=== PATIENT | female | born 1985 | race Caucasian/White ===

== ENCOUNTER 2018-02-07 04:06 | Emergency (ER) | payer BC ==
[~2018-02-07] VITALS: Ht 165.1 cm; Wt 108.9 kg
[~2018-02-07 04:06] MED LIST: NAPROXEN250 MG PO; TYLENOL WITH C1 EACH PO
[2018-02-07] MEDS ORDERED: MORPHINE SULFATE 2 MG/ML SYR IV STA (04:23)
[2018-02-07] MEDS ORDERED: ONDANSETRON HCL INJ 2 MG/ML VIAL IV STA (04:23)
[2018-02-07] MEDS ORDERED: SODIUM CHLORIDE 0.9% 1000ML 1,000 ML IV ONE (04:30)
[2018-02-07 04:34] LABS: BASOPHILS # (AUTO) 0.1 (0.0-0.1); BASOPHILS % 0.5 % (0.0-1.0); EOSINOPHILS # (AUTO) 0.7 (0.0-0.4); EOSINOPHILS % 3.1 % (0.0-6.0); HEMATOCRIT 37.8 % (34.2-44.1); HEMOGLOBIN 12.9 g/dL (12.0-16.0); LYMPHOCYTES # (AUTO) 4.2 (1.0-3.2); LYMPHOCYTES % 19.2 % (18.0-39.1); MEAN CORPUSCULAR HEMOGLOBIN 32.4 pg (28-32); MEAN CORPUSCULAR HGB CONC 34.1 g/dL (31-35); MONOCYTES # (AUTO) 1.1 (0.2-0.8); MONOCYTES % 5.2 % (4.4-11.3); NEUTROPHILS # (AUTO) 15.6 (2.1-6.9); NEUTROPHILS % 71.3 % (38.7-80.0); PLATELET COUNT 317 x10e3/uL (140-360); RED BLOOD COUNT 3.98 x10e6/uL (3.6-5.1); RED CELL DISTRIBUTION WIDTH 12.7 % (11.7-14.4)
[2018-02-07] MEDS ORDERED: DIATRIZOATE MEGL/DIATRIZOA SOD 30 ML BTL PO ONE (04:35)
[2018-02-07 04:53] LABS: BILIRUBIN,URINE NEGATIVE (NEGATIVE); CLARITY,URINE CLEAR (CLEAR); COLOR,URINE YELLOW (YELLOW); KETONES,URINE NEGATIVE (NEGATIVE); LEUKOCYTE ESTERASE ,URINE NEGATIVE (NEGATIVE); NITRITE,URINE NEGATIVE (NEGATIVE); PROTEIN,URINE DIPSTICK NEGATIVE (NEGATIVE); URINE UROBILINOGEN 0.2 mg/dL (0.2 - 1); WBC,URINE (MAN) 0-5 /HPF (0-5)
[2018-02-07 04:54] LABS: EPITHELIAL CELLS,URINE FEW /LPF; PREGNANCY TEST, URINE NEGATIVE (NEGATIVE); RBC,URINE 0-5 /HPF (0-5)
[2018-02-07 04:56] LABS: ALANINE AMINOTRANSFERASE 30 IU/L (0-55); ALBUMIN 3.6 g/dL (3.5-5.0); ALKALINE PHOSPHATASE 89 IU/L (40-150); AMYLASE 35 U/L (25-125); ANION GAP 11.8 mmol/L (8-16); BLOOD UREA NITROGEN 9 mg/dL (7-26); BUN/CREATININE RATIO 13 (6-25); CALCIUM 9.3 mg/dL (8.4-10.2); CARBON DIOXIDE 29 mmol/L (22-29); CHLORIDE 104 mmol/L (98-107); CREATINE KINASE 117 IU/L (29-168); CREATININE, SERUM 0.71 mg/dL (0.57-1.11); EST GLOMERULAR FILTRATION RATE > 60 ML/MIN (60-); GLUCOSE 111 mg/dL (74-118); LIPASE 33 U/L (8-78); POTASSIUM 3.8 mmol/L (3.5-5.1); SODIUM 141 mmol/L (136-145)
[2018-02-07] MEDS ORDERED: IOPAMIDOL 370 MG/ML 200 ML INFUS..BTL INJ ONE (05:14)
[2018-02-07] MEDS ORDERED: SODIUM CHLORIDE 0.9% 50ML 50 ML ONE (05:14)
[2018-02-07] MEDS ORDERED: PIPER-TAZ 3.375 GM 50 ML IV STA (05:17)
[2018-02-07] MEDS ORDERED: NO HOME MEDS (05:24)
--- NOTE | 2018-02-07 05:54 | Diagnostic Imaging Report ---
EXAM: CT Abdomen and Pelvis WITH contrast INDICATION: Right lower quadrant abdominal pain. Nausea for 8 hours. COMPARISON: CT 06/11/2015 TECHNIQUE: Abdomen and pelvis were scanned utilizing a multidetector helical scanner from the lung base to the pubic symphysis after administration of IV contrast. Coronal and sagittal reformations were obtained. Routine protocol was performed. Scan was performed when during portal venous phase. IV CONTRAST: 100 mL of Isovue-370 ORAL CONTRAST: Gastroview COMPLICATIONS: None RADIATION DOSE: Total DLP: 916.11 mGy*cm Estimated effective dose: (DLP x 0.015 x size factor) mSv CTDIvol has been reviewed. It is below the limits set by the Radiation Protocol Committee (RPC). Dose modulation, iterative reconstruction, and/or weight based adjustment of the mA/kV was utilized to reduce the radiation dose to as low as reasonably achievable. FINDINGS: LINES and TUBES: None. LOWER THORAX: Unremarkable HEPATOBILIARY: No focal hepatic lesions. No biliary ductal dilation. GALLBLADDER: No radio-opaque stones or sludge. No wall thickening. SPLEEN: No splenomegaly. 2.2 cm cyst. PANCREAS: No focal masses or ductal dilatation. ADRENALS: No adrenal nodules KIDNEYS/URETERS: Kidneys enhance symmetrically. No hydronephrosis. No cystic or solid mass lesions. No stones. GI TRACT: No abnormal distention, wall thickening, or evidence of bowel obstruction. Appendix is normal. PELVIC ORGANS/BLADDER: Left ovarian 2.8 cm cyst. LYMPH NODES: No lymphadenopathy. VESSELS: Unremarkable. PERITONEUM / RETROPERITONEUM: No free air or fluid. BONES: Unremarkable. SOFT TISSUES: Unremarkable. IMPRESSION: No acute abnormalities in the abdomen or pelvis. No evidence of appendicitis. Signed by: DR. Ashkan Samuels MD on 02/07/2018 5:51 AM
[2018-02-07] MEDS ORDERED: KETOROLAC TROMETHAMINE 30 MG/ML VIAL IV STA (06:31)
[2018-02-07] MEDS ORDERED: HYDROCODONE/APAP 5MG-325MG TAB PO ONE (08:45)
--- NOTE | 2018-02-07 09:02 | Diagnostic Imaging Report ---
EXAM: Transabdominal and Transvaginal Pelvic Ultrasound INDICATION: ^eval for ovarian pathology, tubo ovarian abscess ^[id number] ^[id number] ^Y COMPARISON: CT abdomen and pelvis 02/07/2018 TECHNIQUE: Grayscale transverse and sagittal transabdominal and transvaginal images were obtained of the pelvis. Transvaginal imaging was medically necessary to better evaluate the endometrium. CLINICAL HISTORY: 32 year old G0; last menstrual period: 12/01/2017. FINDINGS: Uterus: Orientation: Anteverted Size: 5.5 x 3.2 x 4.1 cm, Normal Mass: None Cervix: Nabothian cysts. Endometrium: Thickness: 1.1 cm, Normal. Appearance: Homogeneous hyperechoic echotexture without focal thickening. Right ovary: Size: 2.8 x 2.9 x 2.6 cm Mass/Cyst: None Left ovary: Size: 3.1 x 3.4 x 2.4 cm Mass/Cyst: None Adnexa: Normal Cul-de-sac: No free fluid IMPRESSION: Unremarkable pelvic ultrasound exam. Signed by: Dr. Saul Horn M.D. on 02/07/2018 8:59 AM
== END 2018-02-07 09:49 | disposition home or self-care (01) ==
LOC: ER 04:06
DX: R10.31 Right lower quadrant pain (principal); R10.11 Right upper quadrant pain; R11.0 Nausea; D72.829 Elevated white blood cell count, unspecified
CPT/HCPCS: 36415; 74177; 76830; 80053; 81001; 81025; 82150; 82550; 82553; 83690; 84484; 85025; 99284; J1885; J2270; J2405; J2543; J7030; Q9663; Q9967

== ENCOUNTER 2019-02-22 14:47 | Emergency (ER) | payer BC ==
[~2019-02-22] VITALS: Ht 165.1 cm; Wt 108.9 kg
[~2019-02-22 14:47] MED LIST changes: +NO HOME MEDS
--- OUTSIDE RECORDS SUMMARY | 2019-02-22 14:50 | XMS REPORT ---
[facility] Address Unknown Phone Unavailable Care Team Providers Care Film Librarian Name Role Phone EMILY Emily IVAN Unavailable Unavailable Payers Payer Name Policy Type Policy Number Effective Date Expiration Date Problems This patient has no known problems. Allergies, Adverse Reactions, Alerts Allergy Name Allergy Type Status Severity Reaction(s) Onset Date Inactive Date Treating Clinician Comments naproxen DA Active U 2011-03-26 00:00:00 Medications This patient has no known medications. Results Test Description Test Time Test Comments Text Results Atomic Results Result Comments URINALYSIS COMPLETE 2018-08-20 00:49:00 UA COLOR (test code=COLU) YELLOW YELLOW UA APPEARANCE (test code=APPU) HAZY CLEAR UA GLUCOSE DIPSTICK (test code=DGLUU) norm mg/dL NEGATIVE UA BILIRUBIN DIPSTICK (test code=BILU) NEGATIVE mg/dL NEGATIVE UA KETONE DIPSTICK (test code=KETU) 5 (Trace) mg/dL NEGATIVE UA SPECIFIC GRAVITY (test code=SGU) 1.025 1.001-1.035 UA BLOOD DIPSTICK (test code=MADDIE) 150 (3+) Marko/uL NEGATIVE UA PH DIPSTICK (test code=ROGER) 5.0 5.0-8.0 UA PROTEIN DIPSTICK (test code=PROU) 15 (TRACE) mg/dL Neg-15 UA UROBILINIOGEN DIPSTICK (test code=URO) norm mg/dL 0.0-0.2 UA NITRITE DIPSTICK (test code=BRENDEN) NEGATIVE NEGATIVE UA LEUKOCYTE ESTERASE DIPSTICK (test code=LEUU) 25 Shaina/uL (Trace) uL NEGATIVE UA WBC (test code=WBCU) 0-5 per HPF 0-5 UA RBC (test code=RBCU) 0-2 per HPF 0-5 UA EPITHELIAL CELLS (test code=EPIU) Rare (0-1/hpf) per HPF Few UA BACTERIA (test code=BACU) TRACE per HPF NONE UA MUCUS (test code=MUCU) MANY per LPF NONE-FEW Urine Source? Clean CatchDRUGS OF ABUSE SCREEN [id number] 00:49:00* Test Item Value Reference Range Comments URN COCAINE (test code=COCAURN) NEGATIVE NEGATIVE URN CANNABINOIDS (test code=CANNABURN) NEGATIVE NEGATIVE URN AMPHETAMINE (test code=AMPHETURN) NEGATIVE NEGATIVE URN BARBITURATE (test code=BARBITURN) NEGATIVE NEGATIVE URN BENZODIAZEPINE (test code=BENZOURN) POSITIVE NEGATIVE URN OPIATES (test code=OPIATURN) NEGATIVE NEGATIVE URN PHENCYCLIDINE (PCP) (test code=PHENCURN) NEGATIVE NEGATIVE Urine Source? Clean CatchURINALYSIS [id number] 00:48:00* Test Item Value Reference Range Comments UA COLOR (test code=COLU) YELLOW YELLOW UA APPEARANCE (test code=APPU) HAZY CLEAR UA GLUCOSE DIPSTICK (test code=DGLUU) norm mg/dL NEGATIVE UA BILIRUBIN DIPSTICK (test code=BILU) NEGATIVE mg/dL NEGATIVE UA KETONE DIPSTICK (test code=KETU) 5 (Trace) mg/dL NEGATIVE UA SPECIFIC GRAVITY (test code=SGU) 1.025 1.001-1.035 UA BLOOD DIPSTICK (test code=MADDIE) 150 (3+) Marko/uL NEGATIVE UA PH DIPSTICK (test code=ROGER) 5.0 5.0-8.0 UA PROTEIN DIPSTICK (test code=PROU) 15 (TRACE) mg/dL Neg-15 UA UROBILINIOGEN DIPSTICK (test code=URO) norm mg/dL 0.0-0.2 UA NITRITE DIPSTICK (test code=BRENDEN) NEGATIVE NEGATIVE UA LEUKOCYTE ESTERASE DIPSTICK (test code=LEUU) 25 Shaina/uL (Trace) uL NEGATIVE UA WBC (test code=WBCU) 0-5 per HPF 0-5 UA RBC (test code=RBCU) 0-2 per HPF 0-5 UA EPITHELIAL CELLS (test code=EPIU) Rare (0-1/hpf) per HPF Few UA BACTERIA (test code=BACU) TRACE per HPF NONE UA MUCUS (test code=MUCU) MANY per LPF NONE-FEW Urine Source? Clean CatchDRUGS OF ABUSE SCREEN [id number] 00:48:00* Test Item Value Reference Range Comments URN COCAINE (test code=COCAURN) NEGATIVE URN CANNABINOIDS (test code=CANNABURN) NEGATIVE URN AMPHETAMINE (test code=AMPHETURN) NEGATIVE URN BARBITURATE (test code=BARBITURN) NEGATIVE URN BENZODIAZEPINE (test code=BENZOURN) NEGATIVE URN OPIATES (test code=OPIATURN) NEGATIVE URN PHENCYCLIDINE (PCP) (test code=PHENCURN) NEGATIVE Urine Source? Clean CatchURINALYSIS [id number] 00:45:00* Test Item Value Reference Range Comments UA COLOR (test code=COLU) YELLOW YELLOW UA APPEARANCE (test code=APPU) HAZY CLEAR UA GLUCOSE DIPSTICK (test code=DGLUU) norm mg/dL NEGATIVE UA BILIRUBIN DIPSTICK (test code=BILU) NEGATIVE mg/dL NEGATIVE UA KETONE DIPSTICK (test code=KETU) 5 (Trace) mg/dL NEGATIVE UA SPECIFIC GRAVITY (test code=SGU) 1.025 1.001-1.035 UA BLOOD DIPSTICK (test code=MADDIE) 150 (3+) Marko/uL NEGATIVE UA PH DIPSTICK (test code=ROGER) 5.0 5.0-8.0 UA PROTEIN DIPSTICK (test code=PROU) 15 (TRACE) mg/dL Neg-15 UA UROBILINIOGEN DIPSTICK (test code=URO) norm mg/dL 0.0-0.2 UA NITRITE DIPSTICK (test code=BRENDEN) NEGATIVE NEGATIVE UA LEUKOCYTE ESTERASE DIPSTICK (test code=LEUU) 25 Shaina/uL (Trace) uL NEGATIVE UA WBC (test code=WBCU) per HPF 0-5 UA RBC (test code=RBCU) per HPF 0-5 UA EPITHELIAL CELLS (test code=EPIU) per HPF Few UA BACTERIA (test code=BACU) per HPF NONE Urine Source? Clean CatchDRUGS OF ABUSE SCREEN [id number] 00:45:00* Test Item Value Reference Range Comments URN COCAINE (test code=COCAURN) NEGATIVE URN CANNABINOIDS (test code=CANNABURN) NEGATIVE URN AMPHETAMINE (test code=AMPHETURN) NEGATIVE URN BARBITURATE (test code=BARBITURN) NEGATIVE URN BENZODIAZEPINE (test code=BENZOURN) NEGATIVE URN OPIATES (test code=OPIATURN) NEGATIVE URN PHENCYCLIDINE (PCP) (test code=PHENCURN) NEGATIVE Urine Source? Clean CatchBASIC METABOLIC [id number] 00:27:00* Test Item Value Reference Range Comments SODIUM (test code=NA) 141 mmol/L 136-145 POTASSIUM (test code=K) 3.4 mmol/L 3.5-5.1 CHLORIDE (test code=CL) 103 mmol/L 101-109 CARBON DIOXIDE (test code=CO2) 29.4 mmol/L 21-32 ANION GAP (test code=GAP) 12 mmol/L 10-20 GLUCOSE (test code=GLU) 98 mg/dL 74-106 BLOOD UREA NITROGEN (test code=BUN) 8 mg/dL 3-21 GLOMERULAR FILTRATION RATE (test code=GFR) > 60 mL/min >=60 Estimated GFR by using Modified MDRD formula.Chronic kidney disease is defined as either kidney damageor GFR <60 mL/min/1.73 m2 for >3 months. CREATININE (test code=CREAT) 0.68 mg/dL 0.55-1.3 BUN/CREATININE RATIO (test code=BUN/CREA) 11.8 10-20 CALCIUM (test code=CA) 8.6 mg/dL 8.4-10.2 HEPATIC FUNCTION [id number] 00:27:00* Test Item Value Reference Range Comments TOTAL PROTEIN (test code=PROT) 7.2 g/dL 6.5-8.4 ALBUMIN (test code=ALB) 3.5 g/dL 3.4-4.8 GLOBULIN (test code=GLOB) 3.7 G/DL 1-10 ALBUMIN/GLOBULIN RATIO (test code=A/G) 0.95 RATIO 0.75-1.50 BILIRUBIN TOTAL (test code=BILT) 0.20 mg/dL 0.0-1.0 BILIRUBIN DIRECT (test code=BILD) 0.10 mg/dL 0.0-0.30 SGOT/AST (test code=AST) 18 U/L 6-32 SGPT/ALT (test code=ALT) 33 U/L 12-78 Note: Change in REFERENCE RANGE due to new reagent method. ALKALINE PHOSPHATASE TOTAL (test code=ALKP) 102 U/L 38-126 [id number] 00:27:00* Test Item Value Reference Range Comments LIPASE (test code=LIP) 90 U/L 128-270 [id number] 00:27:00* Test Item Value Reference Range Comments MAGNESIUM (test code=MAG) 2.0 mg/dL 1.6-2.3 HCG SERUM [id number] 00:27:00* Test Item Value Reference Range Comments HCG SERUM QUAL (test code=HCGQL) NEGATIVE NEGATIVE This HCGQL test is NOT applicable for MALE patients.Check with nurse about probable order error.If Tumor Marker Test needed, nurse should order test "HCGTU"(Test #550.14646) [id number] 00:27:00* Test Item Value Reference Range Comments TROPONIN-I (test code=TROPI) <0.015 ng/mL 0.00-0.056 B-TYPE NATRIURETIC [id number] 00:26:00* Test Item Value Reference Range Comments B-TYPE NATRIURETIC PEPTIDE (test code=BNP) < 5.0 pg/mL 0-100 BASIC METABOLIC [id number] 00:21:00* Test Item Value Reference Range Comments SODIUM (test code=NA) 141 mmol/L 136-145 POTASSIUM (test code=K) 3.4 mmol/L 3.5-5.1 CHLORIDE (test code=CL) 103 mmol/L 101-109 CARBON DIOXIDE (test code=CO2) 29.4 mmol/L 21-32 ANION GAP (test code=GAP) 12 mmol/L 10-20 GLUCOSE (test code=GLU) 98 mg/dL 74-106 BLOOD UREA NITROGEN (test code=BUN) 8 mg/dL 3-21 GLOMERULAR FILTRATION RATE (test code=GFR) > 60 mL/min >=60 Estimated GFR by using Modified MDRD formula.Chronic kidney disease is defined as either kidney damageor GFR <60 mL/min/1.73 m2 for >3 months. CREATININE (test code=CREAT) 0.68 mg/dL 0.55-1.3 BUN/CREATININE RATIO (test code=BUN/CREA) 11.8 10-20 CALCIUM (test code=CA) 8.6 mg/dL 8.4-10.2 HEPATIC FUNCTION [id number] 00:21:00* Test Item Value Reference Range Comments TOTAL PROTEIN (test code=PROT) gram/dL 6.4-8.2 ALBUMIN (test code=ALB) g/dL 3.4-5.0 GLOBULIN (test code=GLOB) g/dL 2.7-4.2 ALBUMIN/GLOBULIN RATIO (test code=A/G) 0.75-1.50 BILIRUBIN TOTAL (test code=BILT) mg/dL 0.2-1.2 BILIRUBIN DIRECT (test code=BILD) mg/dL 0.0-0.20 SGOT/AST (test code=AST) IUnit/L 15-37 SGPT/ALT (test code=ALT) U/L 10-69 ALKALINE PHOSPHATASE TOTAL (test code=ALKP) IUnit/L 45-117 [id number] 00:21:00* Test Item Value Reference Range Comments LIPASE (test code=LIP) Unit/L 144-286 [id number] 00:21:00* Test Item Value Reference Range Comments MAGNESIUM (test code=MAG) mg/dL 1.8-2.4 HCG SERUM [id number] 00:21:00* Test Item Value Reference Range Comments HCG SERUM QUAL (test code=HCGQL) NEGATIVE NEGATIVE This HCGQL test is NOT applicable for MALE patients.Check with nurse about probable order error.If Tumor Marker Test needed, nurse should order test "HCGTU"(Test #550.76966) [id number] 00:21:00* Test Item Value Reference Range Comments TROPONIN-I (test code=TROPI) ng/mL 0-0.045 BASIC METABOLIC [id number] 00:20:00* Test Item Value Reference Range Comments SODIUM (test code=NA) 141 mmol/L 136-145 POTASSIUM (test code=K) 3.4 mmol/L 3.5-5.1 CHLORIDE (test code=CL) 103 mmol/L 101-109 CARBON DIOXIDE (test code=CO2) 29.4 mmol/L 21-32 ANION GAP (test code=GAP) 12 mmol/L 10-20 GLUCOSE (test code=GLU) 98 mg/dL 74-106 BLOOD UREA NITROGEN (test code=BUN) 8 mg/dL 3-21 GLOMERULAR FILTRATION RATE (test code=GFR) > 60 mL/min >=60 Estimated GFR by using Modified MDRD formula.Chronic kidney disease is defined as either kidney damageor GFR <60 mL/min/1.73 m2 for >3 months. CREATININE (test code=CREAT) 0.68 mg/dL 0.55-1.3 BUN/CREATININE RATIO (test code=BUN/CREA) 11.8 10-20 CALCIUM (test code=CA) 8.6 mg/dL 8.4-10.2 HEPATIC FUNCTION [id number] 00:20:00* Test Item Value Reference Range Comments TOTAL PROTEIN (test code=PROT) gram/dL 6.4-8.2 ALBUMIN (test code=ALB) g/dL 3.4-5.0 GLOBULIN (test code=GLOB) g/dL 2.7-4.2 ALBUMIN/GLOBULIN RATIO (test code=A/G) 0.75-1.50 BILIRUBIN TOTAL (test code=BILT) mg/dL 0.2-1.2 BILIRUBIN DIRECT (test code=BILD) mg/dL 0.0-0.20 SGOT/AST (test code=AST) IUnit/L 15-37 SGPT/ALT (test code=ALT) U/L 10-69 ALKALINE PHOSPHATASE TOTAL (test code=ALKP) IUnit/L 45-117 [id number] 00:20:00* Test Item Value Reference Range Comments LIPASE (test code=LIP) Unit/L 144-286 [id number] 00:20:00* Test Item Value Reference Range Comments MAGNESIUM (test code=MAG) mg/dL 1.8-2.4 HCG SERUM [id number] 00:20:00* Test Item Value Reference Range Comments HCG SERUM QUAL (test code=HCGQL) NEGATIVE [id number] 00:20:00* Test Item Value Reference Range Comments TROPONIN-I (test code=TROPI) ng/mL 0-0.045 CBC W/O [id number] 00:12:00* Test Item Value Reference Range Comments WHITE BLOOD CELL (test code=WBC) 15.5 K/mm3 4.5-12.5 RED BLOOD CELL (test code=RBC) 4.13 mill/mm3 3.7-5.2 HEMOGLOBIN (test code=HGB) 12.9 gram/dL 11.5-15.5 HEMATOCRIT (test code=HCT) 38.1 % 36.0-46.0 MEAN CELL VOLUME (test code=MCV) 92.3 fL 80-98 MEAN CELL HGB (test code=MCH) 31.2 picogram 27.0-33.0 MEAN CELL HGB CONCETRATION (test code=MCHC) 33.9 gram/dL 33.0-36.0 RED CELL DISTRIBUTION WIDTH (test code=RDW) 12.5 % 11.6-16.2 RED CELL DISTRIBUTION WIDTH SD (test code=RDW-SD) 43.2 fL 37.0-51.0 PLATELET COUNT (test code=PLT) 340 K/mm3 150-450 MEAN PLATELET VOLUME (test code=MPV) 10.6 fL 6.7-11.0 - XR CHEST 1 [id number] 23:54:00 Name: GABI VERGARA [facility] : 1985 Age/S:33 /F [address] [facility] Unit#:[id number] Loc: [place] [address] Phys: Gretel Motta MD Dis Date: PHONE #: [phone] Status: REG ER FAX #: [phone] Exam Date: 08/19/2018 Reason: CHEST PAIN EXAMS: CPT CODE: [id number] XR CHEST 1 V 91951 Exam: AP chest Location: F6 History: CHEST PAIN Comparison: None Findings: The lungs are clear. No infiltrate or effusion is seen. The pulmonary vasculature is normal. The heart size is normal. The mediastinal silhouette is unremarkable. The bony thorax is intact. I mpression: No acute disease. at 1837 Reported and signed by: Bharat Gibbs CC: Dr. Yong Kc Technologist: MONI SOLIS RT(R),RDMS,CT Trns crpt Data: 08/19/2018 (2646) t.HARSH. Orig Print D/T: S: 08/19/2018 (0963) PAGE 1 Nataliya d Report - CT ABD PELVIS W/O [id number] 17:01:00 Name: GABI VERGARA [facility] : 1985 Age/S: 33 / F [address] [facility] Unit #: [id number] Loc: Kerry Armendariz [address] Phys: Jae Kelly [employer] Acct: [id number] Dis Date: Status: REG ER PHONE #: [phone] Exam Date: 07/20/2018 1635 FAX #: [phone] Reason: RIGHT MID-BACK/FLANK PAIN EXAMS: CPT CODE: [id number] CT ABD PELVIS W/O CONT 88106 HISTORY: RIGHT MID-BACK/FLANK PAIN TECHNIQUE: 5mm axial CT images were obtained through the abdomen and pelvis without contrast. Sagittal and coronal reformatted images were generated. Automated exposure control for dose reduction. COMPARISON: None FINDINGS: Lung bases are clear. Normal heart size. Mild hepatic steatosis. Simple 2.6 cm splenic cyst. Nonenhanced gallbladder, pancreas, and adrenal glands are unremarkable. Nonenhanced bilateral kidneys are unremarkable. No urinary calculus or hydronephrosis. Limited evaluation of the GI tract without oral contrast. Stomach, small bowel, appendix, and colon are unremarkable. No free air or free fluid. No lymphadenopathy. Abdominal aorta is normal in caliber. Urinary bladder is unremarkable. Asymmetrically enlarged left ovary with small cysts or follicles. Nonenhanced right ovary and uterus are unremarkable. No pelvic free fluid. Degenerative changes of the spine, sacral iliac joints, and hips. IMPRESSION: No acute findings on noncontrast CT of the abdomen/pelvis. No urinary calculus or hydronephrosis. Asymmetrically enlarged left ovary with small cysts or follicles. Consider pelvic ultrasound. at 1701 Reported and signed by: Klaudia Cortez D.O. PAGE 1 Signed Report (CONTINUED) Name: GABI VERGARA [facility] : 1985 Age/S: 33 / F [address] [facility] Unit #: [id number] Loc: [place] [address] Phys: Jae Kelly Acct: [id number] Dis Date: Status: REG ER PHONE #: [phone] Exam Date: 07/20/2018 1635 FAX #: [phone] Reason: RIGHT MID-BACK/FLANK PAIN EXAMS: CPT CODE: [id number] CT ABD PELVIS W/O CONT 18081 < Continued> CC: Dr. Yong Kc; Jae Kelly; Naresh Cardenas MD Technologist:Jenn Mueller CTDI: DLP: Trnscb Date/Time: 07/20/2018 (170) [id number] Orig Print D/T: S: 07/20/2018 (1704) CTDI: DLP: PAGE 2 Signed Report COMPREHENSIVE METABOLIC [id number] 16:09:00* Test Item Value Reference Range Comments SODIUM (test code=NA) 142 mmol/L 135-148 POTASSIUM (test code=K) 3.7 mmol/L 3.5-5.1 CHLORIDE (test code=CL) 105 mmol/L 101-109 CARBON DIOXIDE (test code=CO2) 26.2 mmol/L 21-32 ANION GAP (test code=GAP) 15 mmol/L 10-20 GLUCOSE (test code=GLU) 86 mg/dL 74-106 BLOOD UREA NITROGEN (test code=BUN) 14 mg/dL 3-21 CREATININE (test code=CREAT) 0.76 mg/dL 0.55-1.3 BUN/CREATININE RATIO (test code=BUN/CREA) 18.4 10-20 TOTAL PROTEIN (test code=PROT) 7.7 g/dL 6.5-8.4 ALBUMIN (test code=ALB) 3.7 g/dL 3.4-4.8 GLOBULIN (test code=GLOB) 4.0 G/DL 1-10 ALBUMIN/GLOBULIN RATIO (test code=A/G) 0.9 RATIO 0.75-1.50 CALCIUM (test code=CA) 9.5 mg/dL 8.4-10.2 BILIRUBIN TOTAL (test code=BILT) 0.20 mg/dL 0.0-1.0 SGOT/AST (test code=AST) 19 U/L 6-32 SGPT/ALT (test code=ALT) 41 U/L 12-78 Note: Change in REFERENCE RANGE due to new reagent method. ALKALINE PHOSPHATASE TOTAL (test code=ALKP) 97 U/L 38-126 HCG SERUM [id number] 16:09:00* Test Item Value Reference Range Comments HCG SERUM BETA (test code=HCG) 0.0 mIU/ml 0-5.0 INTERPRETATION:B-HCG LEVELS <6 SHOULD BE CONSIDERED "NEGATIVE."VALUES BETWEEN 6-25 MIU/ML NEED TO BE RETESTED WITHIN 48hrs. 0-1 WEEKS AFTER CONCEPTION 0-50 MIU/ML1-2 WEEKS AFTER CONCEPTION 40-300 MIU/ML2-3 WEEKS AFTER CONCEPTION 100-1,000 MIU/ML3-4 WEEKS AFTER CONCEPTION 500-6,000 MIU/ML1-2 MONTHS AFTER CONCEPTION 5,000-200,000 MIU/ML2-3 MONTHS AFTER CONCEPTION 10,000-100,000 MIU/ML2ND TRIMESTER 3,000-50,000 MIU/ML3RD TRIMESTER 1,000-50,000 MIU/ML COMPREHENSIVE METABOLIC [id number] 15:57:00* Test Item Value Reference Range Comments SODIUM (test code=NA) 142 mmol/L 135-148 POTASSIUM (test code=K) 3.7 mmol/L 3.5-5.1 CHLORIDE (test code=CL) 105 mmol/L 101-109 CARBON DIOXIDE (test code=CO2) 26.2 mmol/L 21-32 ANION GAP (test code=GAP) 15 mmol/L 10-20 GLUCOSE (test code=GLU) 86 mg/dL 74-106 BLOOD UREA NITROGEN (test code=BUN) 14 mg/dL 3-21 CREATININE (test code=CREAT) 0.76 mg/dL 0.55-1.3 BUN/CREATININE RATIO (test code=BUN/CREA) 18.4 10-20 TOTAL PROTEIN (test code=PROT) gram/dL 6.4-8.2 ALBUMIN (test code=ALB) g/dL 3.4-5.0 GLOBULIN (test code=GLOB) g/dL 2.7-4.2 ALBUMIN/GLOBULIN RATIO (test code=A/G) 0.75-1.50 CALCIUM (test code=CA) 9.5 mg/dL 8.4-10.2 BILIRUBIN TOTAL (test code=BILT) mg/dL 0.2-1.2 SGOT/AST (test code=AST) IUnit/L 15-37 SGPT/ALT (test code=ALT) U/L 10-69 ALKALINE PHOSPHATASE TOTAL (test code=ALKP) IUnit/L 45-117 HCG SERUM [id number] 15:57:00* Test Item Value Reference Range Comments HCG SERUM BETA (test code=HCG) mIU/mL <10 CBC W/AUTO [id number] 15:49:00* Test Item Value Reference Range Comments WHITE BLOOD CELL (test code=WBC) 13.3 K/mm3 4.5-12.5 RED BLOOD CELL (test code=RBC) 4.33 mill/mm3 3.7-5.2 HEMOGLOBIN (test code=HGB) 13.8 gram/dL 11.5-15.5 HEMATOCRIT (test code=HCT) 40.7 % 36.0-46.0 MEAN CELL VOLUME (test code=MCV) 94.0 fL 80-98 MEAN CELL HGB (test code=MCH) 31.9 picogram 27.0-33.0 MEAN CELL HGB CONCETRATION (test code=MCHC) 33.9 gram/dL 33.0-36.0 RED CELL DISTRIBUTION WIDTH (test code=RDW) 13.2 % 11.6-16.2 RED CELL DISTRIBUTION WIDTH SD (test code=RDW-SD) 44.2 fL 39.1-52.0 PLATELET COUNT (test code=PLT) 333 K/mm3 150-450 MEAN PLATELET VOLUME (test code=MPV) 10.6 fL 6.7-11.0 NEUTROPHIL % (test code=NT%) 59.2 % 39.0-69.0 LYMPHOCYTE % (test code=LY%) 29.8 % 25.0-55.0 MONOCYTE % (test code=MO%) 6.9 % 0.0-10.0 EOSINOPHIL % (test code=EO%) 3.8 % 0.0-5.0 BASOPHIL % (test code=BA%) 0.3 % 0.0-1.0 NEUTROPHIL # (test code=NT#) 7.85 K/mm3 1.8-7.7 LYMPHOCYTE # (test code=LY#) 3.96 K/mm3 1.0-5.0 MONOCYTE # (test code=MO#) 0.91 K/mm3 0-0.8 EOSINOPHIL # (test code=EO#) 0.51 K/mm3 0.0-0.5 BASOPHIL # (test code=BA#) 0.04 K/mm3 0.0-0.2 MANUAL DIFF REQUIRED (test code=MDIFF) NO URINALYSIS [id number] 15:39:00* Test Item Value Reference Range Comments UA COLOR (test code=COLU) YELLOW YELLOW UA APPEARANCE (test code=APPU) CLEAR CLEAR UA GLUCOSE DIPSTICK (test code=DGLUU) norm mg/dL NEGATIVE UA BILIRUBIN DIPSTICK (test code=BILU) NEGATIVE mg/dL NEGATIVE UA KETONE DIPSTICK (test code=KETU) neg mg/dL NEGATIVE UA SPECIFIC GRAVITY (test code=SGU) 1.025 1.001-1.035 UA BLOOD DIPSTICK (test code=MADDIE) 50 (2+) Marko/uL NEGATIVE UA PH DIPSTICK (test code=ROGER) 5.0 5.0-8.0 UA PROTEIN DIPSTICK (test code=PROU) neg mg/dL Neg-15 UA UROBILINIOGEN DIPSTICK (test code=URO) norm mg/dL 0.0-0.2 UA NITRITE DIPSTICK (test code=BRENDEN) NEGATIVE NEGATIVE UA LEUKOCYTE ESTERASE DIPSTICK (test code=LEUU) neg uL NEGATIVE UA WBC (test code=WBCU) 0-5 per HPF 0-5 UA RBC (test code=RBCU) 3-5 per HPF 0-5 UA EPITHELIAL CELLS (test code=EPIU) Moderate (5-10/hpf) per HPF Few UA BACTERIA (test code=BACU) FEW per HPF NONE Urine Source? Clean CatchUS [id number] 08:57:00 [place] [address] Patient Name: GABI VERGARA MR #: [id number] : 1985 Age/Sex: 32/F Req #: [id number] Adm Physician: Ordered by: HENRY SANFORD MD Report #: [id number] Location: ER Room/Bed: Procedure: [id number] US/US TRANSVAGINAL Exam Date: 02/07/18 Exam Time: 0 707 REPORT STATUS: Signed EXAM: Transabdominal and Transvaginal Pelvic Ultrasound INDICATION: eval for ovarian pathology, tubo ovarian abscess [id number] Y COMPARI SON: CT abdomen and pelvis 02/07/2018 TECHNIQUE: Grayscale transverse and sagi ttal transabdominal and transvaginal images were obtained of the pelvis. Alatorre svaginal imaging was medically necessary to better evaluate the endometrium. CLINICAL HISTORY: 32 year old G0; last menstrual period: 12/01/2017. F INDINGS: Uterus: Orientation: Anteverted Size: 5.5 x 3.2 x 4.1 cm, Normal Mass: None Cervix: Nabothian cysts. Endometrium: Thickness: 1.1 cm, Normal. Appearance: Homogeneous hyperechoic echotexture without foc al thickening. Right ovary: Size: 2.8 x 2.9 x 2.6 cm Mass/Cyst: None Left ovary: Size: 3.1 x 3.4 x 2.4 cm Mass/Cyst: None Adnexa: Normal Cul-de-sac: No free fluid IMPRESSION: Unremarkable pelvic ultraso und exam. Signed by: Dr. Saul Yao M.D. on 02/07/2018 8:59 AM Dictated By: SAUL YAO MD 8 Transcribed By: DEYSI on 02/07/18858 COPY TO: HENRY THOMPSON MD CT ABDOMEN/PELVIS [id number] 05:42:00 [place] [address] Patient Name: GABI VERGARA MR #: [id number] : 1985 Age/Sex: 32/F Req #: [id number] Adm Physician: Ordered by: HENRY SANFORD MD Report #: [id number] Location: ER Room/Bed: Procedure: [id number] CT/CT ABDOMEN/PELVIS W Exam Date: 02/07/18 Exam Jude e: 0520 REPORT STATUS: Signed EX AM: CT Abdomen and Pelvis WITH contrast INDICATION: Right lower quadrant abd ominal pain. Nausea for 8 hours. COMPARISON: CT 06/11/2015 TECHNIQUE: Abdo men and pelvis were scanned utilizing a multidetector helical scanner from the lung base to the pubic symphysis after administration of IV contrast. Coronal and sagittal reformations were obtained. Routine protocol was performed. Scan was performed when during portal venous phase. IV CONTRAST: 100 mL of Isovue-370 ORAL CONTRAST: Gastroview COMPLICATIONS: None RADIATION DOSE: Total DLP: 916.11 mGy*cm Estimated effective dose: (DLP x 0.015 x size factor) mSv CTDIvol has been reviewed. It is below the limits set by the Radiation Protocol Committee (RPC). Dose modulati on, iterative reconstruction, and/or weight based adjustment of the mA/kV was utilized to reduce the radiation dose to as low as reasonably achievable. FINDINGS: LINES and TUBES: None. LOWER THORAX: Unremarkable HEP ATOBILIARY: No focal hepatic lesions. No biliary ductal dilation. GAL LBLADDER: No radio-opaque stones or sludge. No wall thickening. SPLEEN: No splenomegaly. 2.2 cm cyst. PANCREAS: No focal masses or ductal dilatation. ADRENALS: No adrenal nodules KIDNEYS/URETERS: Kidneys enhance s ymmetrically. No hydronephrosis. No cystic or solid mass lesions. No stones. GI TRACT: No abnormal distention, wall thickening, or evidence of bowel obstruction. Appendix is normal. PELVIC ORGANS/BLADDER: Left ovarian 2.8 cm cyst. LYMPH NODES: No lymphadenopathy. VESSELS: Unremarkable. PERITONEUM / RETROPERITONEUM: No free air or fluid. BONES: Unremarkable. SOFT TISSUES: Unremarkable. IMPRESSION: No acute abno rmalities in the abdomen or pelvis. No evidence of appendicitis. Signed by: DR. Ashkan Serrano MD on 02/07/2018 5:51 AM Dictated By: ASHKAN SERRANO MD 0 Transcribed By: DEYSI on 02/07/18550 COPY TO: HENRY SANFORD MD
[2019-02-22] MEDS ORDERED: HYDROCODONE/APAP 7.5MG-325MG 1 EA TAB PO ONE (16:00)
[2019-02-22 16:15] VITALS: BP 122/81
== END 2019-02-22 16:27 | disposition home or self-care (01) ==
LOC: ER 14:47
DX: M25.512 Pain in left shoulder (principal); M75.82 Other shoulder lesions, left shoulder; F41.9 Anxiety disorder, unspecified; F90.9 Attention-deficit hyperactivity disorder, unspecified type
CPT/HCPCS: 99283